=== PATIENT | male | born 1995 | race American Indian/Alaskan Native ===

== ENCOUNTER 2017-05-27 19:17 | Emergency (ER) | payer OTHER ==
[2017-05-27 19:28] VITALS: BP 131/83
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
== END 2017-05-27 23:16 | disposition home or self-care (01) ==
LOC: ED 19:17
DX: S09.90XA Unspecified injury of head, initial encounter (principal); S16.1XXA Strain of muscle, fascia and tendon at neck level, initial encounter; S39.012A Strain of muscle, fascia and tendon of lower back, initial encounter; M54.5 Low back pain; G44.319 Acute post-traumatic headache, not intractable; V43.62XA Car passenger injured in collision with other type car in traffic accident, initial encounter; Y93.89 Activity, other specified; Y99.8 Other external cause status; Y92.488 Other paved roadways as the place of occurrence of the external cause
CPT/HCPCS: 72040